=== PATIENT | female | born 1980 | race Caucasian/White ===

== ENCOUNTER 2016-05-11 08:26 | Emergency (ER) | payer MEDICAID, OTHER ==
[~2016-05-11] VITALS: Ht 162.6 cm; Wt 50.5 kg
[~2016-05-11 08:26] MED LIST: CEPH500 PO; HYDR-3535 PO; NAPR-576 PO; SUCR1S PO; TAMS0.4C67 PO; TRAM50 PO; ZOFR4TAB3 SL
[2016-05-11 08:29] VITALS: BP 122/81; PULSE 70; RESP 16; TEMP 98; O2SAT 100
[2016-05-11] MEDS ORDERED: ADDE30TA PO (08:44)
--- NOTE | 2016-05-11 08:48 | PD ---
HPI Chief Complaint: Injury Time Seen by Provider: 08:39 Travel History International Travel<30 days: No Contact w/Intl Traveler<30days: No Traveled to known affect area: No History of Present Illness HPI The patient was seen and examined in the presence of the nurse. This patient complains of left-sided facial pain and headache. Started on Sunday when she was hit in the face by a batted softball. She complains of moderately severe left frontal headache as well as pain around the orbits. No other injury reported. Symptoms have a duration of 4 days. No alleviating factors. PFSH Past Medical History Cardiovascular Problems: No Diminished Hearing: No Gastrointestinal Disorders: No Genitourinary: Yes (diagnosed with kidney stones and UTI on Sunday ) Musculoskeletal: No Neurologic: No Reproductive: No Respiratory: No Tetanus Vaccination: Unknown ?: Not LMP: 04/19/16 : 2 Para: 2 Past Surgical History Other Surgery: Yes (breast augmentation) Social History Alcohol Use: Yes (daily glass of wine) Tobacco Use: Yes Substance Use: Yes Allergies-Medications (Allergen,Severity, Reaction): Coded Allergies: No Known Allergies (Verified , 05/11/16) Reported Meds & Prescriptions Reported Meds & Active Scripts Active Reported Adderall (Amphetamine-Dextroamphetamine) 30 Mg Tab 30 Mg PO DAILY Avoid late evening doses. Space doses at least 4 to 6 hours if more than once/day dosing. Review of Systems General / Constitutional: No: Fever Eyes: No: Visual changes HENT: Positive: Headaches Cardiovascular: No: Chest Pain or Discomfort Respiratory: No: Shortness of Breath Gastrointestinal: No: Abdominal Pain Genitourinary: No: Dysuria Musculoskeletal: Positive: Pain Skin: No Rash Neurologic: Positive: Headache, No: Weakness Psychiatric: No: Depression Endocrine: No: Polydipsia Hematologic/Lymphatic: No: Easy Bruising Physical Exam Narrative GENERAL: Well-nourished, well-developed patient in no apparent distress. SKIN: Warm and dry. HEAD: Minor periorbital ecchymosis with tenderness at the orbital rim. Normocephalic. EYES: Pupils equal and round. No scleral icterus. No injection or drainage. Extraocular muscles are intact ENT: No nasal bleeding or discharge. Mucous membranes pink and moist. NECK: Trachea midline. No JVD. CARDIOVASCULAR: Regular rate and rhythm. No murmur appreciated. RESPIRATORY: No accessory muscle use. Clear to auscultation. Breath sounds equal bilaterally. GASTROINTESTINAL: Abdomen soft, non-tender, nondistended. Hepatic and splenic margins not palpable. MUSCULOSKELETAL: No obvious deformities. No clubbing. No cyanosis. No edema. NEUROLOGICAL: Awake and alert. No obvious cranial nerve deficits. Motor grossly within normal limits. Normal speech. PSYCHIATRIC: Appropriate mood and affect; insight and judgment normal. Data Data Last Documented VS Vital Signs Date Time Temp Pulse Resp B/P Pulse Ox O2 Delivery O2 Flow Rate FiO2 05/11/16 08:41 16 100 Room Air 05/11/16 08:29 98.0 70 122/[address] Brain W/O Iv Contrast(Rout) (05/11/16 ) Ct Facial Bones W/O Iv Cont (05/11/16 ) MDM Medical Decision Making Medical Screen Exam Complete: Yes Emergency Medical Condition: Yes Medical Record Reviewed: Yes Differential Diagnosis Intracranial hemorrhage, concussion, facial bone fracture Narrative Course I have reviewed the patient's electronic medical record. Given that she has had no improvement in 4 days and has complaints of headache and facial pain I've ordered brain and facial imaging. Brain CT is negative for injury Facial bone CT shows no fracture. Also some chronic sinus disease which requires no emergent treatment Patient is neurologically intact to exam. Stable for outpatient follow-up Patient request copies of the disc be made which is being done now Diagnosis Primary Impression: Head injury due to trauma Qualified Code: S09.90XA - Head injury due to trauma, initial encounter Additional Impression: Orbit injury, left Additional Instructions: The patient was advised to follow up with their physician and return if they worsen. Med/Other Pt SpecificInfo: Other Disposition: 01 DISCHARGE HOME Condition: Stable Darion Knutson MD May 11, 2016 08:48
--- NOTE | 2016-05-11 09:33 | RADHPO ---
EXAM DATE/TIME: 05/11/2016 09:04 [facility] COMPARISON: CT BRAIN W/O CONTRAST, December 20, 2010, 23:50. INDICATIONS : Trauma. Hit in left side of face with a batted softball 4 days ago. Cephalgia. RADIATION DOSE: 63.98 CTDIvol (mGy) MEDICAL HISTORY : Renal calculi. SURGICAL HISTORY : None. ENCOUNTER: Initial ACUITY: 4 - 6 days PAIN SCALE: 7/10 LOCATION: Left cranial TECHNIQUE: Multiple contiguous axial images were obtained of the head. Using automated exposure control and adj ustment of the mA and/or kV according to patient size, radiation dose was kept as low as reasonably a chievable to obtain optimal diagnostic quality images. FINDINGS: CEREBRUM: The ventricles are normal for age. No evidence of midline shift, mass lesion, hemorrhage or acute in farction. No extra-axial fluid collections are seen. POSTERIOR FOSSA: The cerebellum and brainstem are intact. The 4th ventricle is midline. The cerebellopontine angle i s unremarkable. EXTRACRANIAL: The visualized portion of the orbits is intact. Mucosal thickening is seen involving multiple left et hmoid air cells. No air-fluid levels. SKULL: The calvaria is intact. No evidence of skull fracture. CONCLUSION: No acute intracranial abnormality. Chronic left ethmoid sinus disease. Efra Givens Jr., MD on May 11, 2016 at 9:30 Board Certified Radiologist. This report was verified electronically.
--- NOTE | 2016-05-11 09:54 | RADHPO ---
EXAM DATE/TIME: 05/11/2016 09:04 [facility] COMPARISON: No previous studies available for comparison. INDICATIONS : Trauma. Hit in left side of face with a batted softball 4 days ago. Left facial pain. RADIATION DOSE: 34.78 CTDIvol (mGy) MEDICAL HISTORY : Renal calculi. SURGICAL HISTORY : None. ENCOUNTER: Initial ACUITY: 4 - 6 days PAIN SCORE: 8/10 LOCATION: Left facial TECHNIQUE: Volumetric scanning of the facial bones was performed. Using automated exposure control and adjustme nt of the mA and/or kV according to patient size, radiation dose was kept as low as reasonably achiev able to obtain optimal diagnostic quality images. FINDINGS: ORBITS: The orbital and infraorbital osseous structures are intact. The retroconal structures have a normal configuration. No radiopaque foreign bodies are seen. NASAL BONE: The nasal bone and maxillary spine are intact ZYGOMATIC ARCHES: Symmetric without evidence of fracture. SINUSES: The maxillary, ethmoid and frontal sinuses are intact. No air-fluid levels seen. Mucosal thickening is seen involving the maxillary sinuses and left ethmoid air cells. NASAL CAVITY: The nasal septum is intact and midline. The lacrimal ducts are intact. SOFT TISSUES: No radiopaque foreign bodies seen. No soft-tissue swelling is seen. INTRACRANIAL: No intracranial air seen. CRIBIFORM PLATE: Grossly intact. CONCLUSION: 1. No acute trauma. 2. Chronic left ethmoid and bilateral maxillary sinus disease. Efra Givens Jr., MD on May 11, 2016 at 9:32 Board Certified Radiologist. This report was verified electronically.
== END 2016-05-11 11:41 | disposition home or self-care (01) ==
LOC: PHED 08:26
DX: S05.12XA Contusion of eyeball and orbital tissues, left eye, initial encounter (principal); W21.07XA Struck by softball, initial encounter; Y93.64 Activity, baseball; Y92.9 Unspecified place or not applicable
CPT/HCPCS: 70450; 70486

== ENCOUNTER 2017-03-14 20:27 | Emergency (ER) | payer MEDICAID ==
[~2017-03-14 20:27] MED LIST changes: +ADDE30TA PO; -CEPH500 PO; -HYDR-3535 PO; -NAPR-576 PO; -SUCR1S PO; -TAMS0.4C67 PO; -TRAM50 PO; -ZOFR4TAB3 SL
[2017-03-14 20:31] VITALS: BP 120/79; PULSE 92; RESP 22; TEMP 97.8; O2SAT 99
[2017-03-14 21:49] LABS: AUTOMATED NEUTROPHIL # 3.9 TH/MM3 (1.8-7.7); BASOPHIL % 0.6 % (0.0-2.0); EOSINOPHIL # 0.3 TH/MM3 (0-0.4); EOSINOPHIL % 4.5 % (0.0-4.0); HEMATOCRIT 41.5 % (35.0-46.0); HEMOGLOBIN 13.9 GM/DL (11.6-15.3); LYMPH % 38.7 % (9.0-44.0); MEAN CELL VOLUME 96.4 FL (80.0-100.0); MEAN CORPUSCULAR HEMOGLOBIN 32.4 PG (27.0-34.0); MEAN CORPUSCULAR HGB CONC 33.6 % (32.0-36.0); MEAN PLATELET VOLUME 8.5 FL (7.0-11.0); MONO % 6.1 % (0.0-8.0); MONOCYTE # 0.5 TH/MM3 (0-0.9); NEUT % 50.1 % (16.0-70.0); PLATELET COUNT 284 TH/MM3 (150-450); RED BLOOD COUNT 4.31 MIL/MM3 (4.00-5.30); RED CELL DISTRIBUTION WIDTH 12.5 % (11.6-17.2); WHITE BLOOD COUNT 7.7 TH/MM3 (4.0-11.0)
--- NOTE | 2017-03-14 21:59 | RADRPT ---
EXAM DATE/TIME: 03/14/2017 21:10 [facility] COMPARISON: No previous studies available for comparison. INDICATIONS : Short of breath and chest wall swelling. MEDICAL HISTORY : None. SURGICAL HISTORY : Breast augmentation. ENCOUNTER: Initial ACUITY: 1 day PAIN SCORE: 0/10 LOCATION: Bilateral chest FINDINGS: PA and lateral views of the chest demonstrate the lungs to be symmetrically aerated without evidence of mass, infiltrate or effusion. The cardiomediastinal contours are unremarkable. Osseous structure s are intact. CONCLUSION: The lungs are clear. Efra Sahu MD on March 14, 2017 at 21:56 Board Certified Radiologist. This report was verified electronically.
--- NOTE | 2017-03-14 22:02 | RADRPT ---
EXAM DATE/TIME: 03/14/2017 21:16 [facility] COMPARISON: No previous studies available for comparison. INDICATIONS : Right hand pain after slammer in door. MEDICAL HISTORY : None. SURGICAL HISTORY : None. ENCOUNTER: Initial ACUITY: 2 days PAIN SCORE: 10/10 LOCATION: Right medial hand and wrist. FINDINGS: Three view examination of the right hand demonstrates no soft tissue swelling, dislocation, or fractu re. The carpal bones appear intact. The interphalangeal and metacarpophalangeal joints are intact. Bony mineralization is normal. Metallic ring on the 3rd digit obscures mid shaft of the proximal p halanx. CONCLUSION: No evidence of recent bony injury. Efra Sahu MD on March 14, 2017 at 22:00 Board Certified Radiologist. This report was verified electronically.
[2017-03-14 22:05] LABS: ALBUMIN 1.2 GM/DL (3.4-5.0); ALT (GPT) 21 U/L (10-53); AST (GOT) 24 U/L (15-37); BLOOD UREA NITROGEN 6 MG/DL (7-18); CHLORIDE 105 MEQ/L (98-107); CREATININE 0.76 MG/DL (0.50-1.00); GLOMERULAR FILTRATION RATE 86 ML/MIN (>89); GLUCOSE,RANDOM 52 MG/DL (74-106); MAGNESIUM 1.8 MG/DL (1.5-2.5); SODIUM (NA) 141 MEQ/L (136-145)
[2017-03-14 22:08] LABS: ALKALINE PHOSPHATASE 57 U/L (45-117); TOTAL BILIRUBIN ADULT LESS THAN 0.1 MG/DL (0.2-1.0); TOTAL PROTEIN 5.4 GM/DL (6.4-8.2)
--- NOTE | 2017-03-14 22:11 | PD ---
HPI Chief Complaint: Medical Clearance Time Seen by Provider: 21:49 Travel History International Travel<30 days: No Contact w/Intl Traveler<30days: No Traveled to known affect area: No History of Present Illness HPI 36-year-old white female presents to emergency department for evaluation of swelling. She states that she's been having swelling since the beginning of January. She states that she wasn't feeling well before she moved to [place] around 24 January. She noted swelling of her lower legs and her hands and had gone to the emergency department twice in [place]. She states that she was given Lasix and sent home. She has moved back to the [facility] because she cannot work. 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 She states that elevating her feet generally help a small amount. Worse with standing and being upright for any length of time. She denies any chest pain or shortness of breath. She also reports having her right hand closed in a car door earlier today. She denies any autoimmune or connective tissue disorders. No family history of connective tissue disorders. She does smoke marijuana on occasion in smoke cigarettes on occasion. She does not take control. No history of blood clots. [facility] Past Medical History Narrative Medical Kidney stones Cardiovascular Problems: No Diminished Hearing: No Gastrointestinal Disorders: No Genitourinary: Yes (diagnosed with kidney stones and UTI on Sunday ) Musculoskeletal: No Neurologic: No Reproductive: No Respiratory: No Tetanus Vaccination: < 5 Years ?: Unknown LMP: abnormal periods for the last few months : 2 Para: 2 Past Surgical History Narrative Surgical Breast augmentation Other Surgery: Yes (breast augmentation) Social History Alcohol Use: Yes (daily glass of wine) Tobacco Use: Yes Substance Use: Yes (marijuana) Allergies-Medications (Allergen,Severity, Reaction): Coded Allergies: No Known Allergies (Verified , 05/11/16) Reported Meds & Prescriptions Reported Meds & Active Scripts Active Reported Adderall (Amphetamine-Dextroamphetamine) 30 Mg Tab 30 Mg PO DAILY Avoid late evening doses. Space doses at least 4 to 6 hours if more than once/day dosing. Review of Systems General / Constitutional: No: Fever Eyes: No: Visual changes HENT: No: Headaches Cardiovascular: No: Chest Pain or Discomfort Respiratory: No: Shortness of Breath Gastrointestinal: No: Nausea, Abdominal Pain Genitourinary: No: Urgency, Frequency, Dysuria Musculoskeletal: Positive: Arthralgias, Limited ROM, Edema, Pain Skin: No Rash Neurologic: No: Weakness Psychiatric: No: Depression Endocrine: No: Polydipsia Hematologic/Lymphatic: No: Easy Bruising Physical Exam Narrative GENERAL: Well-developed, well-nourished in no apparent distress. Nontoxic appearing. HEAD: Normocephalic, atraumatic. EYES: Pupils equal round and reactive. Extraocular motions intact. No scleral icterus. No injection or drainage. ENT: Nose clear. Throat without erythema, tonsillar hypertrophy or exudate. Uvula midline. Airway patent. NECK: Trachea midline. Supple, nontender, moves head freely. No central bony tenderness or spasm. CARDIOVASCULAR: Regular rate and rhythm without murmurs, gallops, or rubs. RESPIRATORY: Clear to auscultation. Breath sounds equal bilaterally. No wheezes , rales, or rhonchi. GASTROINTESTINAL: Abdomen soft, non-tender, nondistended. No hepato-splenomegaly , or palpable masses. No guarding. EXTREMITIES: No clubbing, cyanosis,no joint tenderness. Patient does have +2 pitting edema to the pretibial area. Patient has minimal swelling of both hands. The right hand has some ecchymosis of the volar palm. BACK: Nontender without deformity. No flank tenderness. NEUROLOGICAL: Awake, alert and oriented x 3 .Cranial nerves grossly intact. Motor and sensory grossly within normal limits. Normal speech. Data Data Last Documented VS Vital Signs Date Time Temp Pulse Resp B/P (MAP) Pulse Ox O2 Delivery O2 Flow Rate FiO2 03/14/17 20:31 97.8 92 22 120/79 (93) 99 Room Air Orders Orders Complete Blood Count With Diff (03/14/17 20:43) Comprehensive Metabolic Panel (03/14/17 20:43) B-Type Natriuretic Peptide (03/14/17 20:43) Magnesium (Mg) (03/14/17 20:43) Chest, Pa & Lat (03/14/17 20:43) Hand, Complete ([id number]) (03/14/17 ) Ua Includes Microscopic (03/14/17 22:03) Ed Urine Pregnancytest Poc (03/14/17 22:03) Ed Discharge Order (03/14/17 23:24) Labs Laboratory Tests Test 03/14/17 21:30 03/14/17 22:50 White Blood Count 7.7 TH/MM3 Red Blood Count 4.31 MIL/MM3 Hemoglobin 13.9 GM/DL Hematocrit 41.5 % Mean Corpuscular Volume 96.4 FL Mean Corpuscular Hemoglobin 32.4 PG Mean Corpuscular Hemoglobin Concent 33.6 % Red Cell Distribution Width 12.5 % Platelet Count 284 TH/MM3 Mean Platelet Volume 8.5 FL Neutrophils (%) (Auto) 50.1 % Lymphocytes (%) (Auto) 38.7 % Monocytes (%) (Auto) 6.1 % Eosinophils (%) (Auto) 4.5 % Basophils (%) (Auto) 0.6 % Neutrophils # (Auto) 3.9 TH/MM3 Lymphocytes # (Auto) 3.0 TH/MM3 Monocytes # (Auto) 0.5 TH/MM3 Eosinophils # (Auto) 0.3 TH/MM3 Basophils # (Auto) 0.0 TH/MM3 CBC Comment DIFF FINAL Differential Comment Blood Urea Nitrogen 6 MG/DL Creatinine 0.76 MG/DL Random Glucose 52 MG/DL Total Protein 5.4 GM/DL Albumin 1.2 GM/DL Calcium Level 8.0 MG/DL Magnesium Level 1.8 MG/DL Alkaline Phosphatase 57 U/L Aspartate Amino Transf (AST/SGOT) 24 U/L Alanine Aminotransferase (ALT/SGPT) 21 U/L Total Bilirubin LESS THAN 0.1 MG/DL Sodium Level 141 MEQ/L Potassium Level 3.8 MEQ/L Chloride Level 105 MEQ/L Carbon Dioxide Level 32.0 MEQ/L Anion Gap 4 MEQ/L Estimat Glomerular Filtration Rate 86 ML/MIN B-Type Natriuretic Peptide 67 PG/ML Urine Color LIGHT-YELLOW Urine Turbidity HAZY Urine pH 7.5 Urine Specific [place] 1.008 Urine Protein 100 mg/dL Urine Glucose (UA) NEG mg/dL Urine Ketones NEG mg/dL Urine Occult Blood NEG Urine Nitrite NEG Urine Bilirubin NEG Urine Urobilinogen LESS THAN 2.0 MG/DL Urine Leukocyte Esterase SMALL Urine RBC 1 /hpf Urine WBC 7 /hpf Urine Squamous Epithelial Cells 7 /hpf Urine Renal Epithelial Cells 3 /hpf Urine Bacteria RARE /hpf MDM Medical Decision Making Medical Screen Exam Complete: Yes Emergency Medical Condition: Yes Medical Record Reviewed: Yes Interpretation(s) CBC & BMP Diagram 03/14/17 21:30 Total Protein 5.4 L, Albumin 1.2 L, Calcium Level 8.0 L, Magnesium Level 1.8, Alkaline Phosphatase 57, Aspartate Amino Transf (AST/SGOT) 24, Alanine Aminotransferase (ALT/SGPT) 21, Total Bilirubin LESS THAN 0.1 L Laboratory Tests Test 03/14/17 21:30 03/14/17 22:50 White Blood Count 7.7 TH/MM3 Red Blood Count 4.31 MIL/MM3 Hemoglobin 13.9 GM/DL Hematocrit 41.5 % Mean Corpuscular Volume 96.4 FL Mean Corpuscular Hemoglobin 32.4 PG Mean Corpuscular Hemoglobin Concent 33.6 % Red Cell Distribution Width 12.5 % Platelet Count 284 TH/MM3 Mean Platelet Volume 8.5 FL Neutrophils (%) (Auto) 50.1 % Lymphocytes (%) (Auto) 38.7 % Monocytes (%) (Auto) 6.1 % Eosinophils (%) (Auto) 4.5 % Basophils (%) (Auto) 0.6 % Neutrophils # (Auto) 3.9 TH/MM3 Lymphocytes # (Auto) 3.0 TH/MM3 Monocytes # (Auto) 0.5 TH/MM3 Eosinophils # (Auto) 0.3 TH/MM3 Basophils # (Auto) 0.0 TH/MM3 CBC Comment DIFF FINAL Differential Comment Blood Urea Nitrogen 6 MG/DL Creatinine 0.76 MG/DL Random Glucose 52 MG/DL Total Protein 5.4 GM/DL Albumin 1.2 GM/DL Calcium Level 8.0 MG/DL Magnesium Level 1.8 MG/DL Alkaline Phosphatase 57 U/L Aspartate Amino Transf (AST/SGOT) 24 U/L Alanine Aminotransferase (ALT/SGPT) 21 U/L Total Bilirubin LESS THAN 0.1 MG/DL Sodium Level 141 MEQ/L Potassium Level 3.8 MEQ/L Chloride Level 105 MEQ/L Carbon Dioxide Level 32.0 MEQ/L Anion Gap 4 MEQ/L Estimat Glomerular Filtration Rate 86 ML/MIN B-Type Natriuretic Peptide 67 PG/ML Urine Color LIGHT-YELLOW Urine Turbidity HAZY Urine pH 7.5 Urine Specific [place] 1.008 Urine Protein 100 mg/dL Urine Glucose (UA) NEG mg/dL Urine Ketones NEG mg/dL Urine Occult Blood NEG Urine Nitrite NEG Urine Bilirubin NEG Urine Urobilinogen LESS THAN 2.0 MG/DL Urine Leukocyte Esterase SMALL Urine RBC 1 /hpf Urine WBC 7 /hpf Urine Squamous Epithelial Cells 7 /hpf Urine Renal Epithelial Cells 3 /hpf Urine Bacteria RARE /hpf Chest x-ray: Negative for infiltrate. Right hand: No acute fracture. Question will evidence of old fracture fifth carpal. Differential Diagnosis Differential diagnoses: Post-glomerular nephritis, nephrotic syndrome, autoimmune, renal disease, cardiomyopathy Narrative Course The patient has protein in her urine as well as low albumin and protein. 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 Physician Communication Physician Communication At 2320 I spoke with who has agreed to see the patient in follow-up. He will like the patient to call his office first thing in the morning. Diagnosis Primary Impression: Nephrotic syndrome Referrals: Zac Price MD 2 days Patient Instructions: General Instructions Additional Instructions: Rest. Avoid any salt products. Avoid excessive fluids. Follow-up with . Call his office in the morning. Call Medicaid in the morning to authorize referral. Call Medicaid to get a primary care doctor. Med/Other Pt SpecificInfo: No Meds Exist/No RX given Disposition: 01 DISCHARGE HOME Condition: Stable Santino Lopez Mar 14, 2017 22:11
[2017-03-14 23:02] LABS: BACTERIA, URINE RARE /hpf; BILIRUBIN, URINE NEG (NEG); BLOOD, URINE NEG (NEG); GLUCOSE,URINE NEG (NEG); KETONE, URINE NEG (NEG); NITRITE,URINE NEG (NEG); PH, URINE 7.5 (5.0-8.5); RENAL EPITHELIAL CELLS 3 /hpf; SQUAMOUS EPITHELIAL CELL URINE 7 /hpf (0-5); URINE COLOR LIGHT-YELLOW (YELLW/STRAW); URINE LEUKOCYTE ESTERASE SMALL (NEG)
== END 2017-03-15 00:33 | disposition home or self-care (01) ==
LOC: NEPD 20:27
DX: N04.9 Nephrotic syndrome with unspecified morphologic changes (principal); M79.89 Other specified soft tissue disorders; M79.641 Pain in right hand; Z87.442 Personal history of urinary calculi; Z72.0 Tobacco use; Z79.899 Other long term (current) drug therapy
CPT/HCPCS: 71020; 73130; 80053; 81001; 83735; 83880; 84703; 85025; 99284

== ENCOUNTER 2017-04-26 06:44 | Day surgery (SDC) | payer MEDICAID ==
[2017-04-26] VITALS (10 sets, daily range): BP systolic 111–140; BP diastolic 70–100; PULSE 90–134; RESP 20; TEMP 97.8–98.3; O2SAT 95–98
[~2017-04-26] VITALS: Ht 160 cm; Wt 52.7 kg
[2017-04-26] MEDS ORDERED: FURO1TAB60 PO (07:05)
[2017-04-26] MEDS ORDERED: MIDAZOLAM HCL 2 MG/2 ML VIAL ONE ×2 (07:27→08:18)
[2017-04-26] MEDS ORDERED: fentaNYL CITRATE 250 MCG/5 ML AMP ONE (07:27)
[2017-04-26] MEDS ORDERED: SODIUM CHLOR 0.9% 1000 ML INJ 1,000 ML IV SCH (07:30)
[2017-04-26 07:47] LABS: PROTHROMBIN TIME - PATIENT 10.1 SEC (9.8-11.6)
[2017-04-26] MEDS ORDERED: LIDOCAINE HCL 1% 20 ML VIAL ONE (07:51)
--- NOTE | 2017-04-26 09:01 | PD.RAD ---
Post CT Procedure Prog Note Pre Procedure Diagnosis: (1) Nephrotic syndrome Post Procedure Diagnosis: (1) Nephrotic syndrome Procedure Date: Apr 26, 2017 Supervising Radiologist: Derick Lynne Proceduralist/Assist: zoe howell Estimated blood loss: none Anesthesia: Conscious Sedation Plan of Activity Patient to Unit: ROPU Patient Condition: Good Additional Comments: minimal retroperitoneal hemorrhage See PACS Report for procedural detail/treatment Derick Lynne MD Apr 26, 2017 09:01
[2017-04-26 09:48] LABS: AUTOMATED NEUTROPHIL # 10.9 TH/MM3 (1.8-7.7); BASOPHIL % 0.3 % (0.0-2.0); EOSINOPHIL % 0.2 % (0.0-4.0); HEMATOCRIT 44.4 % (35.0-46.0); HEMOGLOBIN 15.6 GM/DL (11.6-15.3); LYMPHOCYTE # 2.8 TH/MM3 (1.0-4.8); MEAN CELL VOLUME 94.5 FL (80.0-100.0); MEAN CORPUSCULAR HEMOGLOBIN 33.2 PG (27.0-34.0); MEAN CORPUSCULAR HGB CONC 35.1 % (32.0-36.0); MEAN PLATELET VOLUME 8.4 FL (7.0-11.0); MONO % 6.9 % (0.0-8.0); NEUT % 73.6 % (16.0-70.0); PLATELET COUNT 312 TH/MM3 (150-450); RED CELL DISTRIBUTION WIDTH 13.6 % (11.6-17.2); WHITE BLOOD COUNT 14.8 TH/MM3 (4.0-11.0)
[2017-04-26 11:55] LABS: AUTOMATED NEUTROPHIL # 7.4 TH/MM3 (1.8-7.7); BASOPHIL % 0.3 % (0.0-2.0); EOSINOPHIL # 0.1 TH/MM3 (0-0.4); EOSINOPHIL % 0.6 % (0.0-4.0); HEMATOCRIT 42.1 % (35.0-46.0); HEMOGLOBIN 14.7 GM/DL (11.6-15.3); LYMPH % 28.3 % (9.0-44.0); LYMPHOCYTE # 3.4 TH/MM3 (1.0-4.8); MEAN CORPUSCULAR HEMOGLOBIN 32.8 PG (27.0-34.0); MEAN CORPUSCULAR HGB CONC 34.9 % (32.0-36.0); MEAN PLATELET VOLUME 8.1 FL (7.0-11.0); MONO % 8.5 % (0.0-8.0); NEUT % 62.3 % (16.0-70.0); PLATELET COUNT 308 TH/MM3 (150-450); RED BLOOD COUNT 4.47 MIL/MM3 (4.00-5.30); RED CELL DISTRIBUTION WIDTH 13.2 % (11.6-17.2); WHITE BLOOD COUNT 11.9 TH/MM3 (4.0-11.0)
[2017-04-26] MEDS ORDERED: oxyCODONE/ACETAMINOPHEN 5 MG/325 MG TAB PO ONE (13:30)
--- NOTE | 2017-04-26 15:07 | RADRPT ---
EXAM DATE/TIME: 04/26/2017 14:37 [facility] COMPARISON: CT NEEDLE BIOPSY RENAL, RIGHT, April 26, 2017, 8:11. INDICATIONS : Abdominal fullness/pain ; Evaluate bleeding after right renal biopsy ORAL CONTRAST: No oral contrast ingested. RADIATION DOSE: 4.80 CTDIvol (mGy) MEDICAL HISTORY : None SURGICAL HISTORY : None. ENCOUNTER: Initial ACUITY: 1 day PAIN SCALE: 0/10 LOCATION: Right flank TECHNIQUE: Volumetric scanning of the abdomen and pelvis was performed. Using automated exposure control and ad justment of the mA and/or kV according to patient size, radiation dose was kept as low as reasonably achievable to obtain optimal diagnostic quality images. DICOM format image data is available electro nically for review and comparison. FINDINGS: LOWER LUNGS: The visualized lower lungs are clear. LIVER: Homogeneous density without lesion. There is no dilation of the biliary tree. No calcified gallston es. SPLEEN: Normal size without lesion. PANCREAS: Within normal limits. KIDNEYS: Normal in size and shape. There is no mass, stone, or hydronephrosis. Post biopsy changes along the lower pole right kidney. Minimal retroperitoneal hemorrhage seen posterior to the right kidney measur ing 2.7 x 1.1 cm ADRENAL GLANDS: Within normal limits. VASCULAR: There is no aortic aneurysm. BOWEL/MESENTERY: The stomach, small bowel, and colon demonstrate no acute abnormality. There is no free intraperitone al air or fluid. ABDOMINAL WALL: Within normal limits. RETROPERITONEUM: There is no lymphadenopathy. BLADDER: No wall thickening or mass. REPRODUCTIVE: Within normal limits. INGUINAL: There is no lymphadenopathy or hernia. MUSCULOSKELETAL: Within normal limits for patient age. CONCLUSION: 1. Minimal right sided retroperitoneal hemorrhage. 2. Otherwise unremarkable abdomen. Derick Lynne MD on April 26, 2017 at 15:02 Board Certified Radiologist. This report was verified electronically.
--- NOTE | 2017-04-26 16:03 | RADRPT ---
EXAM DATE/TIME: 04/26/2017 08:11 [facility] COMPARISON: No previous studies available for comparison. INDICATIONS : Proteinuria. SEDATION TIME: 45 minutes BIOPSY SITE: Right flank MEDICATION(S): 1.) 6 mg midazolam (Versed) IV 2.) 250 mcg fentanyl (Sublimaze) IV DEVICE(S): 1.) 17 gauge micropuncture introducer 2.) 18 gauge Temno core biopsy needle MEDICAL HISTORY : Proteinuria. SURGICAL HISTORY : Breast augmentation. ENCOUNTER: Initial ACUITY: 1 day PAIN SCORE: 0/10 LOCATION: Right flank A total of two core specimen(s) were obtained and sent to the laboratory for pathologic evaluation. PROCEDURE: 1. CT guided renal biopsy. Prior to the procedure informed consent was obtained. Any appropriate prior imaging studies were rev iewed. Using automated exposure control and adjustment of the mA and/or kV according to patient size, radiat ion dose was kept as low as reasonably achievable to obtain optimal diagnostic quality images. DICOM format image data is available electronically for review and comparison. The site was prepped in a sterile fashion. Full sterile technique was used, including cap, mask, nayana rile gloves and gown and a large sterile sheet. Hand hygiene and 2% chlorhexidine and/or betadine/al cohol prep was utilized per protocol for cutaneous antisepsis. The skin and subcutaneous tissues wer e infiltrated with local anesthetic solution. With CT guidance the previously identified target was localized. Biopsy was performed using the presc ribed needle as above. Adequate hemostasis was obtained with compression at the puncture site. Follow-up CT scan reveals minimal retroperitoneal hemorrhage. The patient tolerated the procedure well and there were no complications. The patient was returned to the Radiology Outpatient Unit in stable condition. CONCLUSION: Successful CT guided biopsy of lower pole right kidney. Derick Lynne MD on April 26, 2017 at 15:57 Board Certified Radiologist. This report was verified electronically.
== END 2017-04-26 15:40 | disposition home or self-care (01) ==
LOC: HRAD 06:44 → HRIP 06:48 → HRAD 15:40
PROVIDERS: ATTEND Internal Medicine Nephrology
DX: N04.9 Nephrotic syndrome with unspecified morphologic changes (principal)
CPT/HCPCS: 50200; 74176; 77012; 85025; 85610; 85730; J2250; J3010; J7030